=== PATIENT | male | born 1970 | race Caucasian/White ===

== ENCOUNTER 2024-09-10 10:06 | Outpatient (CLI) | payer BC | END 2024-09-10 10:07 | disposition home or self-care (01) | LOC: CSHULT 10:06 | PROVIDERS: ATTEND Orthopaedic Surgery | DX: M79.604 Pain in right leg (principal) ==

== ENCOUNTER 2024-12-09 08:23 | Outpatient (CLI) | payer BC | END 2024-12-09 08:24 | disposition home or self-care (01) | LOC: CSHSLEEP 08:23 | PROVIDERS: ATTEND Family Medicine | DX: G47.33 Obstructive sleep apnea (adult) (pediatric) (principal); G47.61 Periodic limb movement disorder | CPT/HCPCS: 95811 ==